=== PATIENT | female | born 1995 | race Caucasian/White ===

== ENCOUNTER 2021-12-07 02:05 | Day surgery (SDC) | payer OTHER, SELFPAY ==
[2021-12-05 18:09] VITALS: BMI 26.0
--- NOTE | 2021-12-05 18:24 | PC.NURSE ---
Report to the Outpatient Waiting Room, entrance under the green pavilion located off [facility], at time 0830 on date 12/07/21 OR Time: 1030. Time changes happen often and if your time is changed the preop area will call you the afternoon before. - You and your visitor will be asked to self-screen and do not enter if you have any COVID symptoms. - Only one visitor and NO children visitors are allowed at this time. - The patient visitor is requested to leave or wait in car when not with patient due to restrictions. - A mask is required within the hospital. Patients may have clear liquids (water, carbonated beverages, clear teas, apple juice) until 3 hours prior to surgery with a maximum of 20 ounces. - No food from midnight until time of surgery - Infants may have breast milk until 4 hours before surgery, infant formula 6 hours prior to surgery. - Children will be allowed to drink immediately following surgery. If applicable, please bring a bottle or sippy cup to assist with drinking. Juice, water, soda, and popsicles are readily available. For infants on formula, please bring formula the day of surgery. Pacifiers are allowed. Take the following medications with a SIP of water the morning of surgery: _n/a Medications to discontinue per physician _n/a___ Date to take last dose Please no make-up, nail thai, hairspray, perfume, deodorant, or body powder the day of surgery. No jewelry (including any body piercings) or valuables the day of surgery, leave them at home. Please take a shower or bath the night before, or the morning of, surgery with an antibacterial soap. Wear comfortable, loose fitting clothing. Children are encouraged to wear pajamas. - Jewelry must be removed prior to entering the operating room. Rings and piercings that are not removed may be cut off. - The hospital will not accept responsibility for valuables. - Please leave all valuables, including medications, at home the day of surgery. If you are going home after surgery, a licensed driver license examiner must drive you home. - NO public transportation without another adult. - We recommend that an adult stay with you for 24 hours following discharge. - We also recommend that you do not drive, make important decision, drink alcoholic beverages, or take any drugs that were not prescribed by your health care provider for at least 24 hours after your discharge time. For Pediatric surgeries, we recommend two adults accompany the child home (only one inside the building at this time). Follow any additional instructions given to you from your surgeon. If you or anyone in your household have experienced Covid symptoms in the past week, please notify your surgeon or the nurse liaison at the phone number below for possible testing. Telephone instructions given to Mar Rivero and asked if any additional questions and then verbalized understanding. Patient advised to call surgeon office or pre surgery nurse liaison [phone] if any additional questions.
--- NOTE | 2021-12-06 10:18 | P.HP_ITS ---
H&P: HPI History of Present Illness Date/Time: 12/06/21 10:18 Chief Complaint: 1st trimester missed A/B Narrative: [age]-year-old 2 para 1 had a 9 week ultrasound that shows a 7 week missed A/ B. Risks and benefits were reviewed [facility] Social History Social History Years smoked: 1.5 Smoking status: Former smoker Tobacco type: e-cigarettes/vaping Alcohol intake: never Substance use: never Last use: 08/29/21 Living arrangements: with family Spiritual care concerns: No Meds Home Medications and Allergies Home Medications Medication Instructions Recorded Confirmed Type No Home Medications 12/05/21 12/05/21 History Allergies Allergy/AdvReac Type Severity Reaction Status Date / Time No Known Allergies Allergy Verified 12/05/21 18:08 Exam Const: General: cooperative and healthy appearing Nutritional Appearance: average body habitus Orientation/consciousness: oriented to person, oriented to place and oriented to time Chest: Chest palpation & inspection: normal inspection of the chest Resp: Effort & Inspection: normal respiratory effort Cardio: Rate: regular rate Rhythm: regular rhythm Heart sounds: S1 normal heart sound present and S2 normal heart sound present GI: Inspection: normal to inspection Auscultation: normal bowel sounds : External Female Exam: normal external appearance Speculum Exam - Cervix: Cervical os closed Bimanual exam- vagina & uterus: enlarged Bimanual Exam- Adnexa, other: normal adnexae Assessment and Plan Assessment and plan (1) Missed with demise before 20 completed weeks of gestation: Code(s): O02.1 - Missed Status: Acute Plan suction dilatation curettage
--- NOTE | 2021-12-07 07:14 | WPDHPUPDATE1 ---
History and Physical Update Update Date/Time: 12/07/21 07:14 History and Physical has been reviewed, including an updated exam of the patient. There are NO changes in the patient's condition. Risks, benefits, and alternatives have been discussed and questions answered. Patient agrees to proceed with procedure.
[2021-12-07 08:10] VITALS: BP 104/49; PULSE 100; RESP 16; TEMP 36.9; O2SAT 100
--- NOTE | 2021-12-07 08:38 | WPDANESEPPF ---
Anes - Initial Pre Proc Eval Procedure: Operation Date: 12/07/21 09:30 Proposed Procedures p Suction Dilation and Curettage - Jacob Myers MD Date/Time: 12/07/21 08:38 Surgeon: Jacob Myers MD Pre Op Diagnosis: missed ab Patient Data Age: 26 Gender: F Height: 1.65 m Weight: 71 kg Allergies Allergy/AdvReac Type Severity Reaction Status Date / Time No Known Allergies Allergy Verified 12/05/21 18:08 Home Medications Medication Instructions Recorded Confirmed Type hydrocodone 5 mg-acetaminophen 325 1 tablet PO Q4H PRN pain #14 tabs 12/07/21 Rx mg tablet Patient hx anesthesia problems: none Family hx anesthesia problems: none Results Review: All pre-operative results and documents have been reviewed as part of the pre-operative evaluation. [facility] Surgical History Surgical History (Updated 12/07/21 @ 08:39 by Jacob Callaway MD) History of section Social History Social History Years smoked: 1.5 Smoking status: Former smoker Tobacco type: e-cigarettes/vaping Alcohol intake: never Substance use: never Last use: 08/29/21 Living arrangements: with family Spiritual care concerns: No Anes - Eval Final PreProcedure Day of Procedure 12/07/21 08:38 Patient weight: normal Heart: regular rate and rhythm Lungs: clear to auscultation Airway: Mallampati scale class II Neurological: alert and oriented Last oral intake: >/= 8 hours ASA classification: II Emergent: no Anesthetic plan: proceed Anesthesia type and monitoring: general GIVS and standard monitoring Results Review: All pre-operative results and documents have been reviewed as part of the pre-operative evaluation. Informed Consent: The patient's anesthetic plan and its attendant risks and benefits were discussed with the patient/family/POA. Questions were solicited and answers provided to the satisfaction of the patient/family/POA.
[2021-12-07 09:08] LABS: Hematocrit 34.4 % (37.0-47.0); Hemoglobin 11.8 g/dL (12.0-15.0)
[2021-12-07] MEDS: ACETAMINOPHEN 500 MG TABLET 1000 MG PO (09:10)
[2021-12-07] MEDS: LACTATED RINGERS 1,000 ML 30 ML IV CONT (09:11)
[2021-12-07] MEDS: LIDOCAINE HCL 1% PF 30 ML VIAL 10 ML INFILTRATE (09:28)
[2021-12-07 09:36] VITALS: BP 118/78; PULSE 89; RESP 16; O2SAT 97
--- NOTE | 2021-12-07 09:37 | W.PM.PROC2 ---
Procedure Note - Detailed Date of Procedure 12/07/21 Pre-op Diagnosis missed ab Post-op Diagnosis Same Procedure Performed Suction dilatation curettage Surgeon Jacob Myers MD Anesthesia MAC and Local Indications This is a 26-year-old multiparous patient with first-trimester missed A/B Findings Uterus sounded to 10cm. Tissue consistent with products of conception Description of Procedure Patient was prepped draped in the normal sterile fashion placed in the dorsal lithotomy position. Under excellent IV sedation weighted speculum placed in posterior fornix vagina. Anterior lip of the cervix grasped with a single-tooth tenaculum. 10cc plate into 2-1/2 cc at a time at 2:48 a.m. 10:00 a.m. respectively of the cervix were placed. Uterus sounded to 10cm. Serial dilatation with fragmented dilators performed followed by passage of the 10. Suction curette removing a moderate to large amount of tissue. Once a good grating sound was heard the instruments removed. All sponge, needle, instrument counts were correct. There were no immediate complications Estimated Blood Loss 25 Drains No Packing No Pathology Yes Complications No immediate complications Condition Stable Disposition PACU
--- NOTE | 2021-12-07 09:42 | SUR.PHASEII ---
Patient is A+. No Rhogam needed.
[2021-12-07 10:05] VITALS: BP 101/61; PULSE 69
== END 2021-12-07 10:25 | disposition home or self-care (01) ==
PROVIDERS: Visit Provider Obstetrics & Gynecology
PROC: (CPT 59820; principal; 2021-12-07 09:30)
DX: O02.1 Missed abortion (principal); F17.210 Nicotine dependence, cigarettes, uncomplicated
CPT/HCPCS: 59820; 36415; 85014; 85018; 85461; 88305; A9270; J2250; J2704; J3010; J7120